=== PATIENT | female | born 1985 | race Caucasian/White ===

== ENCOUNTER 2016-07-02 08:43 | Emergency (ER) | payer BC, MEDICAID ==
[2016-07-02 08:59] VITALS: BMI 19.7
[2016-07-02 09:26] LABS: LEUKOCYTES/URINE NEG (NEGATIVE); NITRITE/URINE NEG (NEGATIVE); RBC/URINE 0-2 (0-5); URINE OCCULT BLOOD NEG (NEG/TRACE); WBC/URINE 0-2 (0-5)
[2016-07-02] MEDS ORDERED: MORPHINE 4 MG/ML INJECTION IV ONE (09:35)
[2016-07-02] MEDS ORDERED: NS 1,000 ML IV ONE (09:35)
[2016-07-02] MEDS ORDERED: SODIUM CHLORIDE 0.9% 10 ML FLUSH FLUSH PRN (09:35)
[2016-07-02] MEDS ORDERED: ONDANSETRON HCL 4 MG/2 ML VIAL IV ONE (09:35)
--- NOTE | 2016-07-02 09:37 | EDPRACDOC ---
- General Information Chief Complaint: Abdominal Pain Stated Complaint: RIGHT SIDE ABD PAIN Time Seen by Provider: 07/02/16 09:31 Information Source: Patient Mode Of Arrival: Car Home Medications: Home Medications Hydrocodone Bit/Acetaminophen [Lortab 5/325] 1 tab PO Q4-6H PRN #15 tab Noreth A-Et Estra/Fe Fumarate [Microgestin Fe 1-20 Tablet] 1 each PO DAILY 07/02 Promethazine [Phenergan] 25 mg PO Q4-6H PRN #15 tab 07/02/16 Ranitidine [Zantac] 150 mg PO BID #14 tablet 07/02/16 Allergies/Adverse Reactions: Allergies Allergy/AdvReac Type Severity Reaction Status Date / Time No Known Allergies Allergy Verified 07/02/16 09:42 - History of Present Illness Onset: 199 HPI: Pt c/o RUQ pain with nausea x 1 day. Denies fever, cough, congestion, cp, sob, changes in bowel or bladder, rash. Pt states she ate BBQ meatballs last night Pain Location: Reports: RUQ Pain Context: Reports: Spontaneous Pain Severity: Moderate Pain Quality: Reports: Sharp, Stabbing Pain Radiation: Reports: No Radiation Last Menstrual Period: 3 weeks ago Blood Type: O+ Modifying Factors: improves with: Nothing Female Associated Signs & Symptoms: Reports: Nausea Oral Intake: Decreased Urinary Output: Normal ED Past Medical History - History Reviewed Yes Nurses notes reviewed and agree except as marked - Patient Medical History Psychological History: Denies: Depression Systemic History: Denies: Cancer - Social Medical History Smoking Status: Heavy tobacco smoker (5 or more cigarettes/day or daily pipe/ cigar) ETOH: Social Substance Abuse: None EDM Review of Systems - Review of Systems Constitutional: No Symptoms Reported. negative: Fever, Chills, Weakness, Fatigue, Loss of Appetite Ears: No Symptoms Reported. negative: Pain, Hearing Loss, Drainage, Ear Pulling Throat: No Symptoms Reported. negative: Pain, Swelling Nose: No Symptoms Reported. negative: Congestion, Bleeding, Discharge, Injection, Swelling, Deformity, Ecchymosis, Tender, Abrasion, Laceration Mouth: No Symptoms Reported. negative: Pain, Drooling Respiratory: No Symptoms Reported. negative: Cough, Brassy Cough, Barky Cough, Shortness of Breath, Wheezing, Hemoptysis Cardiovascular: No Symptoms Reported. negative: Chest Pain, Palpitations, Syncope, Edema, Orthopnea, PND, Skin Mottling, Cyanosis Gastrointestinal: Nausea, Pain Genitourinary: No Symptoms Reported. negative: Dysuria, Hematuria, Frequency, Discharge, Bleeding, Testicular Pain, Neurological: No Symptoms Reported. negative: Headache, Dizziness, Seizure, Numbness, Weakness, Speech Difficulty, Gait Difficulty Musculoskeletal: No Symptoms Reported. negative: Neck, Chestwall, Ribs, Back, Shoulder, Arm, Elbow, Forearm, Wrist, Hand, Pelvis, Hip, Femur, Knee, Leg, Ankle , Foot Integumentary: No Symptoms Reported. negative: Itching, Rash, Bruising, Wound Allergic/Immunologic: No Symptoms Reported. negative: Hives, Itching Hematologic: No Symptoms Reported. negative: Lymphadenopathy, Easy Bruising, Easy Bleeding Psychiatric: No Symptoms Reported. negative: Anxiety, Depression, Hallucinations, Insomnia, Suicidal - Physical Exam Constitutional: Alert Oriented to: Time, Person, Place Last recorded Vital Signs: Last Vital Signs Temp 97.9 F 07/02/16 08:51 Pulse 93 07/02/16 08:51 Resp 18 07/02/16 08:51 BP 115/70 07/02/16 08:51 Pulse Ox 99 07/02/16 08:51 Oxygen Pulse Oxygen Saturation 99 O2 Device Oxygen Flow Rate Fraction of Inspired Oxygen ( FIO2) - HEENT Head: Normal ( normocephalic) Eye Exam: Normal (PERRL, EOMI, Sclera white) Neck: Normal (FROM, trachea at midline) - Respiratory/Cardiovascular Respiratory: Normal - CTA (BBS clear to auscultation without adventitious sounds ) Cardiovascular: Normal (RRR without murmur, gallop or rub) - GI Auscultation: Normal (NABS) Palpation: Normal (Soft,No rebound or guarding, non distended) Tenderness: Moderate, RUQ Youngblood's Sign: Positive - Musculoskeletal Back: Normal (Non-Tender) Extremities: Normal (Normal tone, Pulses 2+ No cyanosis or edema, FROM) - Integumentary Skin: Normal, Warm, Dry Lymphatics: Normal (no adenopathy) - Neurologic Memory Impaired: Normal Motor Function: Normal (Normal tone, Pulses 2+ No cyanosis or edema, FROM) Mood Description: Normal Perception: Normal - Differential Diagnosis Cholecystitis, Cholelithiasis, Colic, Pancreatitis, PUD - Results 07/02/16 09:40 07/02/16 09:40 WBC 9.2 xk/uL (3.8-10.8) 07/02/16 09:40 RBC 4.83 xM/uL (4.20-5.40) 07/02/16 09:40 Hgb 14.1 g/dL (12.0-16.0) 07/02/16 09:40 Hct 41.6 % (36-47) 07/02/16 09:40 MCV 86 fL (81-99) 07/02/16 09:40 MCH 29.2 pg (27-32) 07/02/16 09:40 MCHC 33.9 g/dl (33-36) 07/02/16 09:40 RDW 12.0 % (11.5-14.5) 07/02/16 09:40 Plt Count 214 xk/uL (130-400) 07/02/16 09:40 MPV 9.6 fL (7.4-10.4) 07/02/16 09:40 Neut % (Auto) 77.7 % (45-76) H 07/02/16 09:40 Lymph % (Auto) 11.8 % (17-44) L 07/02/16 09:40 [place] % (Auto) 9.5 % (3-10) 07/02/16 09:40 Eos % (Auto) 0.6 % (0-5) 07/02/16 09:40 Baso % (Auto) 0.4 % (0-2) 07/02/16 09:40 Absolute Neuts (auto) 7.08 xk/uL (1.7-8.2) 07/02/16 09:40 Absolute Lymphs (auto) 1.01 xk/uL (0.65-4.75) 07/02/16 09:40 Sodium 143 mEq/L (137-146) 07/02/16 09:40 Potassium 4.7 mEq/L (3.5-5.1) 07/02/16 09:40 Chloride 106 mEq/L (98-107) 07/02/16 09:40 Carbon Dioxide 23 mMOL/L (22-33) 07/02/16 09:40 Anion Gap 19 mEq/L (8-16) H 07/02/16 09:40 BUN 12 MG/DL (7-17) 07/02/16 09:40 Creatinine 0.60 MG/DL (0.52-1.04) 07/02/16 09:40 Estimated GFR (MDRD) > 60 mL/min (>=60) 07/02/16 09:40 Glucose 102 mg/dL (70-99) H 07/02/16 09:40 Calculated Osmolality 275 MOs/Kg (270-290) 07/02/16 09:40 Calcium 9.6 MG/DL (8.4-10.2) 07/02/16 09:40 Total Bilirubin 0.5 MG/DL (0.2-1.3) 07/02/16 09:40 AST 48 IU/L (14-36) H 07/02/16 09:40 ALT 62 IU/L (9-52) H 07/02/16 09:40 Alkaline Phosphatase 68 IU/L (38-126) 07/02/16 09:40 Total Protein 7.6 G/DL (6.3-8.2) 07/02/16 09:40 Albumin 4.3 G/DL (3.5-5.0) 07/02/16 09:40 Lipase 93 U/L (23-300) 07/02/16 09:40 Urine Color Yellow 07/02/16 08:45 Urine Clarity Clear 07/02/16 08:45 Urine pH 5.0 (5.0-8.0) 07/02/16 08:45 Ur Specific [place] 1.005 (1.003-1.035) 07/02/16 08:45 Urine Protein Neg (NEG/TRACE) 07/02/16 08:45 Urine Glucose (UA) Neg (NEGATIVE) 07/02/16 08:45 Urine Ketones 1+ (NEGATIVE) H 07/02/16 08:45 Urine Occult Blood Neg (NEG/TRACE) 07/02/16 08:45 Urine Nitrite Neg (NEGATIVE) 07/02/16 08:45 Urine Bilirubin Neg (NEGATIVE) 07/02/16 08:45 Urine Urobilinogen <2.0 MG/DL (0-1) 07/02/16 08:45 Ur Leukocyte Esterase Neg (NEGATIVE) 07/02/16 08:45 Urine RBC 0-2 (0-5) 07/02/16 08:45 Urine WBC 0-2 (0-5) 07/02/16 08:45 Ur Epithelial Cells Occ 07/02/16 08:45 Urine Bacteria Few (NEG/FEW) 07/02/16 08:45 Urine Mucus Occ (NEG/OCC) 07/02/16 08:45 Urine Sperm Occ (NONE) H 07/02/16 08:45 Urine Test Neg (NEGATIVE) 07/02/16 08:45 Lab Results 07/02/16 07/02/16 07/02/16 09:40 09:40 08:45 WBC 9.2 RBC 4.83 Hgb 14.1 Hct 41.6 MCV 86 MCH 29.2 MCHC 33.9 RDW 12.0 Plt Count 214 MPV 9.6 Neut % (Auto) 77.7 H Lymph % (Auto) 11.8 L [place] % (Auto) 9.5 Eos % (Auto) 0.6 Baso % (Auto) 0.4 Absolute Neuts (auto) 7.08 Absolute Lymphs (auto) 1.01 Sodium 143 Potassium 4.7 Chloride 106 Carbon Dioxide 23 Anion Gap 19 H BUN 12 Creatinine 0.60 Estimated GFR (MDRD) > 60 Glucose 102 H Calculated Osmolality 275 Calcium 9.6 Total Bilirubin 0.5 AST 48 H ALT 62 H Alkaline Phosphatase 68 Total Protein 7.6 Albumin 4.3 Lipase 93 Urine Color Yellow Urine Clarity Clear Urine pH 5.0 Ur Specific [place] 1.005 Urine Protein Neg Urine Glucose (UA) Neg Urine Ketones 1+ H Urine Occult Blood Neg Urine Nitrite Neg Urine Bilirubin Neg Urine Urobilinogen <2.0 Ur Leukocyte Esterase Neg Urine RBC 0-2 Urine WBC 0-2 Ur Epithelial Cells Occ Urine Bacteria Few Urine Mucus Occ Urine Sperm Occ H Urine Test 07/02/16 08:45 WBC RBC Hgb Hct MCV MCH MCHC RDW Plt Count MPV Neut % (Auto) Lymph % (Auto) [place] % (Auto) Eos % (Auto) Baso % (Auto) Absolute Neuts (auto) Absolute Lymphs (auto) Sodium Potassium Chloride Carbon Dioxide Anion Gap BUN Creatinine Estimated GFR (MDRD) Glucose Calculated Osmolality Calcium Total Bilirubin AST ALT Alkaline Phosphatase Total Protein Albumin Lipase Urine Color Urine Clarity Urine pH Ur Specific [place] Urine Protein Urine Glucose (UA) Urine Ketones Urine Occult Blood Urine Nitrite Urine Bilirubin Urine Urobilinogen Ur Leukocyte Esterase Urine RBC Urine WBC Ur Epithelial Cells Urine Bacteria Urine Mucus Urine Sperm Urine Test Neg - Diagnostic Imaging Abdomen Image interpreted by: Radiologist 07/02/16 10:55 IMPRESSION: Normal right upper quadrant ultrasound. Decision Time to Discharge: 10:55 - Departure Disposition: Home Condition: Good Final Diagnosis: RUQ abdominal pain Instructions: Acute Abdominal Pain (ED), Non-pharmacological Pain Management Therapies for Adults (GEN), Abdominal Pain (ED) Education/Counseling Given To: Patient Education/Counseling Given Regarding: Diagnosis, Treatment, Follow Up Referrals: None,No Provider [Primary Care Provider] - One Week Ricardo Chinchilla MD [Staff Physician] - One Week Prescriptions: New Hydrocodone Bit/Acetaminophen [Lortab 5/325] 1 tab PO Q4-6H PRN #15 tab PRN Reason: Pain Promethazine [Phenergan] 25 mg PO Q4-6H PRN #15 tab PRN Reason: Nausea/Vomiting Ranitidine [Zantac] 150 mg PO BID #14 tablet No Action Noreth A-Et Estra/Fe Fumarate [Microgestin Fe 1-20 Tablet] 1 each PO DAILY Additional Instructions: Avoid spicy, greasy, fatty foods. Follow up with Personal MD for further evaluation of pain.
[2016-07-02 09:47] LABS: AUTOMATED BASOPHIL 0.4 % (0-2); AUTOMATED EOSINOPHIL 0.6 % (0-5); AUTOMATED LYMPH 11.8 % (17-44); AUTOMATED MONOCYTE 9.5 % (3-10); AUTOMATED NEUTROPHIL 77.7 % (45-76); MPV 9.6 fL (7.4-10.4)
[2016-07-02 09:58] LABS: BLOOD UREA NITROGEN 12 MG/DL (7-17); CALCIUM 9.6 MG/DL (8.4-10.2); CALCULATED OSMOLALITY 275 MOs/Kg (270-290); CHLORIDE 106 mEq/L (98-107); GLUCOSE 102 mg/dL (70-99); SODIUM LEVEL 143 mEq/L (137-146); TOTAL PROTEIN 7.6 G/DL (6.3-8.2)
--- NOTE | 2016-07-02 10:50 | DIRPT ---
CLINICAL DATA: Right upper quadrant pain since 2 a.m. this morning EXAM: US ABDOMEN LIMITED - RIGHT UPPER QUADRANT COMPARISON: None. FINDINGS: Gallbladder: No gallstones seen. There is no gallbladder wall thickening, pericholecystic fluid or other secondary sonographic signs of acute cholecystitis. No sonographic Youngblood's sign elicited during the examination, per the craft manager. Common bile duct: Diameter: Normal at 2 mm Liver: No focal lesion identified. Within normal limits in parenchymal echogenicity. No free fluid. IMPRESSION: Normal right upper quadrant ultrasound. Electronically Signed By: Nikhil Olson M.D. On: 07/02/2016 10:47
[2016-07-02 10:56] VITALS: BP 96/59; PULSE 90; TEMP 97.8
== END 2016-07-02 11:12 | disposition home or self-care (01) ==
LOC: ED 08:43
DX: R10.11 Right upper quadrant pain (principal)
CPT/HCPCS: 36415; 76705; 80053; 81001; 81025; 83690; 85025; 96361; 96374; 96375; 99283; J2270; J2405